=== PATIENT | female | born 1955 | race Caucasian/White ===

== ENCOUNTER 2021-09-29 06:23 | Day surgery (SDC) | payer OTHER ==
[~2021-09-29 06:23] MED LIST: ENDOMETRIN100 MG VAG
== END 2021-09-29 16:30 | disposition home or self-care (01) ==
LOC: CIR.AMB 06:23
PROVIDERS: ATTEND Orthopaedic Surgery Hand Surgery
DX: S63.591A Other specified sprain of right wrist, initial encounter (principal); Z20.822 Contact with and (suspected) exposure to COVID-19

== ENCOUNTER 2025-08-26 11:48 | Outpatient (CLI) | payer OTHER | END 2025-08-26 11:49 | disposition home or self-care (01) | LOC: RAD 11:48 | PROVIDERS: ATTEND Orthopaedic Surgery | DX: M25.512 Pain in left shoulder (principal); M79.642 Pain in left hand ==